=== PATIENT | female | born 1995 | race Two or more races ===

== ENCOUNTER 2023-12-30 19:14 | Emergency (ER) | payer BC ==
[2023-12-30 19:24] VITALS: BP 126/82; PULSE 97; RESP 18; TEMP 97.7; BMI 23.8
[2023-12-30 19:53] LABS: BASO % 0.6 % (0-2.0); EOS % 2.6 % (0-4.5); HEMATOCRIT 37.7 % (32.4-45.2); HEMOGLOBIN 12.8 GM/dL (10.7-15.3); LYMPH % 35.8 % (8-40); MCH 30.4 pg (25.7-33.7); MCHC 33.9 g/dl (32.0-36.0); MEAN CELL VOLUME 89.6 fl (80-96); MEAN PLT VOLUME 7.6 fl (7.5-11.1); MONO % 6.9 % (3.8-10.2); NEUT % 54.1 % (42.8-82.8); PLATELET COUNT 370 10^3/uL (134-434); RBC 4.21 M/mm3 (3.60-5.2); RDW 12.3 % (11.6-15.6); WHITE BLOOD COUNT 9.5 K/mm3 (4.0-10.0)
[2023-12-30 20:20] LABS: CALCIUM 8.8 mg/dL (8.5-10.1); POTASSIUM 3.9 mmol/L (3.5-5.1)
[2023-12-30 20:24] LABS: CREATININE 0.9 mg/dL (0.55-1.3)
[2023-12-30 20:25] LABS: BILIRUBIN,TOTAL 0.6 mg/dL (0.2-1)
[2023-12-30 20:27] LABS: TOT PROT 7.8 g/dl (6.4-8.2)
[2023-12-30 21:15] LABS: N-TERMINAL BNP 18.7 pg/ml (5-125)
== END 2023-12-30 21:17 | disposition home or self-care (01) ==
LOC: JER 19:14
DX: R53.83 Other fatigue (principal); R00.2 Palpitations
CPT/HCPCS: 36415; 71046-TC-FY; 80053; 80061; 82306; 82607; 83880; 84443; 84484; 84703; 85025; 99284-25